=== PATIENT | male | born 1995 | race Asian ===

== ENCOUNTER 2022-04-02 10:24 | Emergency (ER) | payer OTHER ==
[~2022-04-02] VITALS: Ht 170.2 cm; Wt 97.5 kg
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
--- NOTE | 2022-04-02 10:33 | NUR ---
DR. WILSON AND PA AT BEDSIDE.
[2022-04-02] MEDS ORDERED: ACETAMINOPHEN ES 500 MG TABLET ONE (10:39)
--- NOTE | 2022-04-02 10:43 | NUR ---
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
[2022-04-02] MEDS ORDERED: ACETAMINOPHEN ES 500 MG TABLET PO ONE (11:00)
[2022-04-02] MEDS ORDERED: IBUP-1957 PO (11:13)
--- NOTE | 2022-04-02 11:27 | NUR ---
Patient discharged to home in stable condition. Written and verbal after care instructions given. Patient verbalizes understanding of instruction.
[2022-04-02 11:36] VITALS: BP 152/88
== END 2022-04-02 11:32 | disposition home or self-care (01) ==
LOC: ER 10:33
DX: M54.50 Low back pain, unspecified (principal); Z79.1 Long term (current) use of non-steroidal anti-inflammatories (NSAID); V89.2XXA Person injured in unspecified motor-vehicle accident, traffic, initial encounter; Y93.89 Activity, other specified; Y92.411 Interstate highway as the place of occurrence of the external cause; Y99.8 Other external cause status
CPT/HCPCS: 72110-TC